=== PATIENT | male | born 1975 | race Caucasian/White ===

== ENCOUNTER → 2022-06-19 14:13 | Outpatient (CLI) | payer MEDICARE, OTHER, SELFPAY ==
--- NOTE | ~2022-06-19 | XR_ITS ---
EXAM: XR shoulder RT min 2V DATE: 06/19/2022 14:43 HISTORY: Right shoulder pain . COMPARISON: None available. FINDINGS: Normal mineralization. No fracture or dislocation. No lytic or blastic lesion. Moderate AC joint hypertrophy. Moderate narrowing and osteophytosis at the glenohumeral joint. No erosion or per iosteal change. Soft tissues within normal limits. 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 Reviewed, dictated and finalized at location K. ORTIZATION SCHEDULE CLERK
== END ==
PROVIDERS: PCP Nurse Practitioner Family; Visit Provider Nurse Practitioner Family
DX: M25.511 Pain in right shoulder (principal); M19.011 Primary osteoarthritis, right shoulder
CPT/HCPCS: 73030

== ENCOUNTER 2025-03-09 18:18 | Emergency (ER) | payer MEDICARE, OTHER, SELFPAY ==
[2025-03-09] VITALS (18 sets, daily range): BP systolic 117–167; BP diastolic 72–89; PULSE 80–96; RESP 15–26; TEMP 37.1; O2SAT 95–98
--- NOTE | ~2025-03-09 | XR_ITS ---
XR chest 2V HOSTORY: chest pain COMPARISON:[ None] FINDINGS: Frontal and lateral views of the chest were obtained. The lungs are clear. The heart size is normal in size. Pulmonary vasculature is unremarkable. Osseous structures are intact. IMPRESSION: No acute lung findings.] [ ] Reviewed, dictated and finalized at location S.
--- NOTE | ~2025-03-09 | CT_ITS ---
CT brain wo con HISTORY:blurry vision COMPARISON: None. TECHNIQUE: Axial images were obtained of the head without intravenous contrast. FINDINGS: No acute intracranial hemorrhage, mass effect or midline shift. No extra-axial fluid collections. The calvarium is intact. Visualized paranasal sinuses and mastoid air cells are clear. IMPRESSION: No acute intracranial hemorrhage or extra axial fluid collections. All CT scans at this facility are performed using low dose modulation techniques as appropriate to perform exam including the following: automated exposure control; use of iterative reconstruction technique; adjustment of the mA and/or kV according to patient size (this includes techniques or standardized protocols for targeted exams where dose is matched to indication/reason for exam). Reviewed, dictated and finalized at location S. IMPRESSION: No acute intracranial hemorrhage or extra axial fluid collections. All CT scans at this facility are performed using low dose modulation techniqu es as appropriate to perform exam including the following: automated exposure c ontrol; use of iterative reconstruction technique; adjustment of the mA and/or kV according to patient size (this includes techniques or standardized protocol s for targeted exams where dose is matched to indication/reason for exam).
--- NOTE | ~2025-03-09 | CT_ITS ---
CTA chest PE protocol HISTORY:CP, [id number] on EKG, recent hospitalization . COMPARISON: None. TECHNIQUE: Following the noncontrasted digital program manager, axial images of the thorax were obtained following infusion of 100 cc of Isovue 370. Post-processing on an independent workstation was performed to reconstruct MIP images for evaluation of the thoracic vasculature. FINDINGS: There is no pulmonary embolism, aortic dissection, thoracic aneurysm or pericardial fluid. The lung parenchyma is clear. No pleural effusion or pneumothorax is noted. There is no axillary, mediastinal or hilar adenopathy. Limited evaluation of the upper abdomen demonstrates no gross abnormalities. There is anterior compression deformity of L1 vertebral body. IMPRESSION: There is no pulmonary embolism, aortic dissection, pericardial fluid or thoracic aneurysm. No acute lung findings. Anterior wedge compression deformity of L1 vertebral body. The patient has point tenderness and follow-up MRI or bone scan can be done to determine chronicity. All CT scans at this facility are performed using low dose modulation techniques as appropriate to perform exam including the following: automated exposure control; use of iterative reconstruction technique; adjustment of the mA and/or kV according to patient size (this includes techniques or standardized protocols for targeted exams where dose is matched to indication/reason for exam). Reviewed, dictated and finalized at location S. IMPRESSION: There is no pulmonary embolism, aortic dissection, pericardial fluid or thoraci c aneurysm. No acute lung findings. Anterior wedge compression deformity of L1 vertebral body. The patient has poin t tenderness and follow-up MRI or bone scan can be done to determine chronicity . All CT scans at this facility are performed using low dose modulation techniqu es as appropriate to perform exam including the following: automated exposure c ontrol; use of iterative reconstruction technique; adjustment of the mA and/or kV according to patient size (this includes techniques or standardized protocol s for targeted exams where dose is matched to indication/reason for exam).
--- NOTE | 2025-03-09 18:20 | ECG_ITS ---
Test Date: 2025-03-09 18:23:16 Measurements Intervals [place] Rate: 97 P: 63 MT: 149 QRS: -24 QRSD: 105 T: -23 QT: 355 QTc: 451 Interpretive Statements SINUS RHYTHM POSSIBLE LEFT ATRIAL ENLARGEMENT INCOMPLETE RIGHT BUNDLE BRANCH BLOCK INFERIOR INFARCT, AGE INDETERMINATE BORDERLINE T WAVE ABNORMALITY- LATERAL LEADS BASELINE WANDER- V3 ABNORMAL ECG No previous ECG available for comparison Electronically Signed On 03-09-2025 18:49:27 CDT by Travis Branham D.O.
[2025-03-09 18:38] LABS: Hematocrit 45.6 % (42.0-52.0); Hemoglobin 15.6 g/dL (14.0-18.0); Immature Granulocyte Percent A 0.2 % (0-0.5); Lymphocytes Absolute Auto 1.88 K/mm3 (0.9-3.2); Mean Corpuscular HGB Conc 34.2 g/dl (32-36); Mean Corpuscular Hemoglobin 30.3 pg (26-34); Mean Corpuscular Volume 88.5 fl (80-100); Nucleated Red Blood Cells Absolute Auto 0.000 K/mm3 (0.0-0.012); Nucleated Red Blood Cells Perc 0.0 % (0.0-0.2); Platelet Count Result 312 k/mm3 (150-375); Red Blood Count 5.15 M/mm3 (4.6-6.20); White Blood Count 5.8 K/mm3 (4.5-10.0)
[2025-03-09 18:48] LABS: Alanine Aminotransferase 26 U/L (6-50); Albumin Level 4.5 g/dL (3.5-5.1); Alkaline Phosphatase 76 U/L (38-126); Anion Gap 10 mmol/L (4-12); Aspartate Amino Transferase 45 U/L (17-59); Bilirubin,Total 0.9 mg/dL (0.2-1.3); Blood Urea Nitrogen 15 mg/dL (9-20); Calcium 8.5 mg/dL (8.4-10.2); Carbon Dioxide 23 mmol/L (22-30); Chloride 103 mmol/L (98-107); Estimated Glomerular Filt Rate 52; Glucose 88 mg/dL (65-110); Lipase 117 U/L (23-300); Potassium 3.9 mmol/L (3.4-5.0); Sodium 136 mmol/L (137-145); Total Protein 7.1 g/dL (6.3-8.2)
[2025-03-09 18:51] LABS: INR 0.9; Prothrombin Time 12.5 Seconds (11.1-14.7)
[2025-03-09 18:52] LABS: Partial Thromboplastin Time 32.0 Seconds (22.3-36.8)
[2025-03-09 19:00] LABS: Troponin I 0.027 ng/mL (0.000-0.034)
--- NOTE | 2025-03-09 19:24 | ED.CHESTPAIN ---
HPI - Chest Pain General Chief Complaint: Chest Pain Stated Complaint: I'm thinking I'm having a heart attack Time Seen by Provider: 03/09/25 19:06 History of Present Illness HPI narrative: 49-year-old male with a history of hyperlipidemia presenting to the emergency department for complaints of heart racing and difficulty focusing his vision. Patient had a heart attack 01/25 and went to the [facility] where he received 3 stents. Patient was discharged with Cardiology follow-up. He was started on aspirin and statin as well as recommendations for high-intensity statin but patient refused this. Patient's symptoms started sometime yesterday. No headache, neck pain, chest pain, chest pressure, abdominal pain, back pain, fever chills. He just knows that his heart rate has been elevated into the 120s and he is having difficulty focusing his vision. No vision loss but states that both his eyes feel fatigued in the take a moment to focus which is new. No other weakness or difficulty walking or strength or sensory deficits. Related Data Allergies Allergy/AdvReac Type Severity Reaction Status Date / Time No Known Allergies Allergy Verified 03/09/25 18:19 Review of Systems Review of Systems: As reviewed above in HPI Exam Narrative: GENERAL: [Well-appearing, well-nourished, and in no acute distress.] HEAD: [Normocephalic, atraumatic.] EYES: [PERRLA and EOMI.] ENT: Nares clear, no rhinorrhea or epistaxis. Mucous membranes moist. NECK: Supple. CHEST: [Clear to auscultation. No respiratory distress.] HEART: [Regular rate and rhythm]. No murmur heard. [Normal peripheral pulses.] ABDOMEN: [Soft, nondistended], [nontender], [No rigidity or guarding] EXTREMITIES: Normal range of motion. [No edema.] SKIN: Warm, dry, no rash. NEURO: [No focal deficits]. Alert and oriented [x3.]. No facial asymmetry or arm/leg deficits. No ataxia. Ambulatory. PSYCH: [Normal mood and affect.] Course Vital Signs Vital signs: Vital Signs Pulse Rate 87 03/09/25 19:16 Respiratory Rate 21 H 03/09/25 19:16 Temperature 37.1 C 03/09/25 22:36 Pulse Rate 88 03/09/25 22:36 Respiratory Rate 20 03/09/25 22:36 Blood Pressure 167/89 H 03/09/25 22:36 Pulse Oximetry 98 03/09/25 22:36 MDM - Chest Pain MDM Narrative Medical decision making narrative: 49-year-old male with a history of hyperlipidemia presenting to the emergency department for complaints of heart racing and difficulty focusing his vision. Patient had a heart attack 01/25 and went to the [facility] where he received 3 stents. Patient was discharged with Cardiology follow-up. He was started on aspirin and statin as well as recommendations for high-intensity statin but patient refused this. Patient's symptoms started sometime yesterday. No headache, neck pain, chest pain, chest pressure, abdominal pain, back pain, fever chills. He just knows that his heart rate has been elevated into the 120s and he is having difficulty focusing his vision. No vision loss but states that both his eyes feel fatigued in the take a moment to focus which is new. No other weakness or difficulty walking or strength or sensory deficits. Patient is overall well-appearing not any acute distress. [facility] and he has no chronic medical conditions aside from hyperlipidemia that this is only risk factor for his NV. baseline creatinine 1.03, A1c 5.1, UDS negative. Will obtain cardiac workup here given his recent NV and delta troponins, EKG, chest x-ray, CT of the head obtained to rule out any intracranial process such as a stroke given his visual complaints although unlikely intracranial pathology given bilateral nature and no vision loss just described as his vision is ?fatigued.? Possibilities of electrolyte derangements, dehydration, medication side effects versus ACS the or intracranial pathology. Creatinine mildly elevated, CPK mildly elevated but likely related. Given fluids for hydration. Patient states he feels much better and no longer having any racing heart rate or palpitations. Blurry vision improved but not fully resolved. CT scan of the chest showed no PE or acute cardiopulmonary disease or process. CT of the head negative. Troponin is negative x2. EKG without any ischemic changes. Hemodynamically stable and given improvement without any urgent or emergent concerns identified today patient is safe for discharge with primary care provider and Cardiology follow-up. Patient states he will contact the NV for close follow-up appointment and given strict return precautions which she verbalized understanding. Discharge home at this time. Medical Records Data Attestation: I reviewed the patient's medical records. Lab Data Attestation: I reviewed the patient's lab results. 03/09/25 18:31 03/09/25 18:31 Labs: Lab Results 03/09/25 03/09/25 Range/Units 18:31 21:34 WBC 5.8 (4.5-10.0) K/mm3 RBC 5.15 (4.6-6.20) M/mm3 Hgb 15.6 (14.0-18.0) g/dL Hct 45.6 (42.0-52.0) % MCV 88.5 (80-100) fl MCH 30.3 (26-34) pg MCHC 34.2 (32-36) g/dl RDW 14.0 (11.5-14.5) % Plt Count 312 (150-375) k/mm3 MPV 9.5 (7.4-10.4) fl Immature Gran % (Auto) 0.2 (0-0.5) % Neut % (Auto) 56.1 (45.5-73.1) % Lymph % (Auto) 32.5 (18.3-44.2) % [place] % (Auto) 9.7 H (2.6-8.5) % Eos % (Auto) 1.0 (0-4.4) % Baso % (Auto) 0.5 (0.2-1.2) % Lymph # (Auto) 1.88 (0.9-3.2) K/mm3 [place] # (Auto) 0.6 (0.1-0.6) K/mm3 Eos # (Auto) 0.1 (0-0.3) K/mm3 Baso # (Auto) 0.0 (0.0-0.1) K/mm3 Abs Immat Gran (auto) 0.01 (0.00-0.031) K/mm3 Absolute Neuts (auto) 3.3 (1.3-6.7) K/mm3 Absolute Nucleated RBC 0.000 (0.0-0.012) K/mm3 Nucleated RBC % 0.0 (0.0-0.2) % PT 12.5 (11.1-14.7) Seconds INR 0.9 APTT 32.0 (22.3-36.8) Seconds Sodium 136 L (137-145) mmol/L Potassium 3.9 (3.4-5.0) mmol/L Chloride 103 (98-107) mmol/L Carbon Dioxide 23 (22-30) mmol/L Anion Gap 10 (4-12) mmol/L BUN 15 (9-20) mg/dL Creatinine 1.43 H (0.7-1.3) mg/dL Estim Creat Clear Calc Not Reportable Estimated GFR 52 L (59 - ) Glucose 88 (65-110) mg/dL Calcium 8.5 (8.4-10.2) mg/dL Total Bilirubin 0.9 (0.2-1.3) mg/dL AST 45 (17-59) U/L ALT 26 (6-50) U/L Alkaline Phosphatase 76 (38-126) U/L Total Creatine Kinase 1168 H (55-170) U/L Troponin I 0.027 0.031 (0.000-0.034) ng/mL Total Protein 7.1 (6.3-8.2) g/dL Albumin 4.5 (3.5-5.1) g/dL Lipase 117 (23-300) U/L Imaging Data Attestation: I personally reviewed and interpreted this imaging study as follows: My impression: Impressions Chest X-Ray 03/09/25 18:53 IMPRESSION: No acute lung findings.] [ ] Head CT 03/09/25 19:55 IMPRESSION: No acute intracranial hemorrhage or extra axial fluid collections. All CT scans at this facility are performed using low dose modulation techniques as appropriate to perform exam including the following: automated exposure control; use of iterative reconstruction technique; adjustment of the mA and/or kV according to patient size (this includes techniques or standardized protocols for targeted exams where dose is matched to indication/reason for exam). Chest CTA 03/09/25 21:15 IMPRESSION: There is no pulmonary embolism, aortic dissection, pericardial fluid or thoracic aneurysm. No acute lung findings. Anterior wedge compression deformity of L1 vertebral body. The patient has point tenderness and follow-up MRI or bone scan can be done to determine chronicity. All CT scans at this facility are performed using low dose modulation techniques as appropriate to perform exam including the following: automated exposure control; use of iterative reconstruction technique; adjustment of the mA and/or kV according to patient size (this includes techniques or standardized protocols for targeted exams where dose is matched to indication/reason for exam). Discharge Plan Discharge Clinical Impression: Heart palpitations, Problem focusing eyes, Coronary artery disease with history of coronary revascularization, Dehydration Patient Disposition: Home Condition: Stable Instructions: Antibiotic Form, Chest Pain (ED), Blurred Vision (ED) Additional Instructions: Laboratory studies are reassuring with no emergent findings. Slight elevation in your creatinine which could be some slight dehydration and we gave the fluids here. Cardiac markers normal. EKG stable. Follow-up with your [facility] provider and return with any new developing symptoms such as crushing chest pain, difficulty breathing, losing consciousness, neurological complaints or any other issues. Patient Language: Hebrew Follow-up/Referrals: [facility] [Primary Care Provider, Medical] Time of Disposition: 22:26
[2025-03-09 19:56] LABS: Creatine Kinase 1168 U/L (55-170)
[2025-03-09] MEDS: ASPIRIN 81 MG CHEWABLE TABLET 324 MG PO (20:11)
[2025-03-09] MEDS: LACTATED RINGERS 1,000 ML 999 ML IV CONT (20:11)
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
--- NOTE | 2025-03-09 21:30 | ECG_ITS ---
Test Date: 2025-03-09 21:34:55 Measurements Intervals [place] Rate: 79 P: 68 [place]: 162 QRS: 16 QRSD: 108 T: -29 QT: 399 QTc: 459 Interpretive Statements SINUS RHYTHM POSSIBLE LEFT ATRIAL ENLARGEMENT INCOMPLETE RIGHT BUNDLE BRANCH BLOCK INFERIOR INFARCT, AGE INDETERMINATE BASELINE WANDER- V3 ABNORMAL ECG Compared to ECG 03/09/2025 18:23:16 NO SIGNIFICANT CHANGE Electronically Signed On 03-10-2025 05:10:45 CDT by Travis Branham D.O.
[2025-03-09 22:11] LABS: Troponin I 0.031 ng/mL (0.000-0.034)
== END 2025-03-09 22:38 | disposition home or self-care (01) ==
PROVIDERS: Emergency Medicine; Emergency Provider Student in an Organized Health Care Education/Training Program
DX: E86.0 Dehydration (principal); R00.2 Palpitations; H53.8 Other visual disturbances; I25.10 Atherosclerotic heart disease of native coronary artery without angina pectoris; I25.2 Old myocardial infarction; E78.5 Hyperlipidemia, unspecified; Z95.5 Presence of coronary angioplasty implant and graft; I45.10 Unspecified right bundle-branch block; R94.31 Abnormal electrocardiogram [ECG] [EKG]
CPT/HCPCS: 36415; 70450; 71046; 71275; 80053; 82550; 83690; 84484; 85025; 85610; 85730; 93005; 96360; 99284; A9270; J7120; Q9967